=== PATIENT | male | born 1975 | race Caucasian/White ===

== ENCOUNTER 2021-05-27 16:44 | Emergency (ER) | payer SELFPAY ==
[~2021-05-27] VITALS: Ht 170.2 cm; Wt 90.7 kg
--- NOTE | 2021-05-27 16:44 | NUR ---
BIBA TO BED 6
[2021-05-27 16:59] VITALS: BP 130/85
--- NOTE | 2021-05-27 17:04 | NUR ---
PT TAKEN TO CT VIA SARAH
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
--- NOTE | 2021-05-27 18:43 | NUR ---
DR. FIELDS BEDSIDE EVALUATING PT
[2021-05-27 19:16] VITALS: BP 108/71
--- NOTE | 2021-05-27 19:17 | NUR ---
Patient discharged with v/s stable. Written and verbal after care instructions given and explained. Patient verbalized understanding. Ambulatory with steady gait. All questions addressed prior to discharge. Advised to follow up with PMD.
--- NOTE | 2021-05-27 20:10 | NUR ---
PT LEFT ER WITHOUT D/C PAPERWORK. RX SENT TO PHARMACY
== END 2021-05-27 19:07 | disposition home or self-care (01) ==
LOC: MED 16:44
DX: S01.01XA Laceration without foreign body of scalp, initial encounter (principal); F10.129 Alcohol abuse with intoxication, unspecified; R56.9 Unspecified convulsions; G40.909 Epilepsy, unspecified, not intractable, without status epilepticus; W22.8XXA Striking against or struck by other objects, initial encounter; Y93.89 Activity, other specified; Y92.89 Other specified places as the place of occurrence of the external cause; Y99.8 Other external cause status
CPT/HCPCS: 70450; 72125; 90471; 90715; 99285

== ENCOUNTER 2021-06-06 11:25 | Emergency (ER) | payer SELFPAY ==
[~2021-06-06] VITALS: Ht 170.2 cm; Wt 89.8 kg
[2021-06-06 11:33] VITALS: BP 119/76
--- NOTE | 2021-06-06 11:34 | NUR ---
PATIENT AMBULATED TO BED 2, STEADY GAIT.
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
[2021-06-06 12:33] VITALS: BP 111/70
== END 2021-06-06 12:38 | disposition home or self-care (01) ==
LOC: MED 11:25
DX: S01.01XD Laceration without foreign body of scalp, subsequent encounter (principal); X58.XXXD Exposure to other specified factors, subsequent encounter
CPT/HCPCS: 99281

== ENCOUNTER 2022-04-10 11:24 | Emergency (ER) | payer SELFPAY ==
[~2022-04-10] VITALS: Ht 170.2 cm; Wt 86.2 kg
[2022-04-10 11:30] VITALS: BP 136/93
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
[2022-04-10] MEDS ORDERED: NAPR-54 PO (12:11)
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
--- NOTE | 2022-04-10 13:11 | NUR ---
Patient discharged with v/s stable. Written and verbal after care instructions FOR KNEE SPRAIN given and explained. Patient alert, oriented and verbalized understanding of instructions. Ambulatory with steady gait. All questions addressed prior to discharge. ID band removed. Patient advised to follow up with PMD. Rx of NAPROXEN given. Opportunity to ask questions provided and answered. [place] [id number] [address] [facility] [id number]
--- NOTE | 2022-04-10 13:15 | NUR ---
The patient's care was reviewed and supervised by Pamela Marino RN.
--- NOTE | 2022-04-10 13:30 | NUR ---
Herb bedolla in [facility] - 04/10/22 at 1343 by DYLON The patient's care was reviewed and supervised by Pamela Marino RN.
== END 2022-04-10 13:10 | disposition home or self-care (01) ==
LOC: MED 11:24
DX: S83.92XA Sprain of unspecified site of left knee, initial encounter (principal); Z79.899 Other long term (current) drug therapy; X58.XXXA Exposure to other specified factors, initial encounter; Y93.39 Activity, other involving climbing, rappelling and jumping off; Y92.89 Other specified places as the place of occurrence of the external cause; Y99.8 Other external cause status
CPT/HCPCS: 73562; 99283